=== PATIENT | male | born 1980 ===

== ENCOUNTER 2016-10-04 07:56 | Emergency (ER) | payer OTHER, SELFPAY ==
[2016-10-04 08:01] VITALS: BMI 19.9
[2016-10-04 08:04] VITALS: RESP 18; O2SAT 100
[2016-10-04] MEDS ORDERED: Lidocaine 5% Patch TD STA (08:54)
--- NOTE | 2016-10-04 08:54 | C.PDOC ---
History Of Present Illness Patient is a 36 y/o male presents to the ED for evaluation of upper and lower back pain for the last 3 weeks. States that pain is worse when moving a certain way, and with sitting, but feels better when walking or laying down. 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 Otherwise, denies any fall, trauma, nausea, vomiting, bowel or bladder incontinence/retention, saddle anesthesia, paresthesia, focal weakness, sensory deficit, hematuria, dysuria, or fever. Time Seen by Provider: 10/04/16 08:31 Chief Complaint (Nursing): Back Pain History Per: Patient History/Exam Limitations: no limitations Onset/Duration Of Symptoms: Days (3 weeks) Current Symptoms Are (Timing): Still Present Quality Of Discomfort: "Pain" Severity: Moderate Previous Symptoms: Back Pain. denies: Prior Injury Associated Symptoms: None. denies: Incontinence, New Weakness, New Numbness Exacerbating Factor(s): Movement (certain movements), Sitting Recent travel outside of the [place]: No Additional History Per: Patient Past Medical History Reviewed: Historical Data, Nursing Documentation, Vital Signs Vital Signs: Last Vital Signs Temp 97.8 F 10/04/16 09:55 Pulse 63 10/04/16 09:55 Resp 18 10/04/16 09:55 BP 123/78 10/04/16 09:55 Pulse Ox 100 10/04/16 10:48 Surgical History: Appendectomy (2004) Family History: States: Unknown Family Hx - Social History Hx Tobacco Use: No Hx Alcohol Use: Yes Hx Substance Use: No - Immunization History Hx Tetanus Toxoid Vaccination: No Hx Influenza Vaccination: No Hx Pneumococcal Vaccination: No Review Of Systems Except As Marked, All Systems Reviewed And Found Negative. Constitutional: Negative for: Fever, Chills Cardiovascular: Negative for: Chest Pain, Palpitations Respiratory: Negative for: Shortness of Breath Gastrointestinal: Negative for: Nausea, Vomiting, Abdominal Pain Genitourinary: Negative for: Dysuria, Frequency, Incontinence, Hematuria Musculoskeletal: Positive for: Back Pain Skin: Negative for: Rash, Bruising Neurological: Negative for: Weakness, Numbness Physical Exam - Physical Exam Appears: Non-toxic, No Acute Distress Skin: Normal Color, Warm, Dry Head: Atraumatic, Normacephalic Eye(s): bilateral: Normal Inspection Oral Mucosa: Moist Neck: Normal ROM, Supple Chest: Symmetrical Cardiovascular: Rhythm Regular, No Murmur Respiratory: Normal Breath Sounds, No Rales, No Rhonchi, No Wheezing Gastrointestinal/Abdominal: Soft, No Tenderness Back: No CVA Tenderness, No Vertebral Tenderness, Muscle Spasm (mild), Paraspinal Tenderness (right thoracic, mid paraspinal, and LS spine) Extremity: Bilateral: Atraumatic, Normal ROM Neurological/Psych: Oriented x3, Normal Speech, Normal Cognition, No Other (no focal deficits) ED Course And Treatment O2 Sat by Pulse Oximetry: 100 (RA) Pulse Ox Interpretation: Normal - Other Rad CXR X-Ray: Viewed By Me, Read By Radiologist Interpretation: HISTORY: pain. COMPARISON: No prior. TECHNIQUE: Chest PA and lateral. FINDINGS: LUNGS: Bilateral hyperaeration. No consolidation or masses appreciated. PLEURA: No significant pleural effusion identified. No pneumothorax apparent.Probable trace biapical pleural thickening. CARDIOVASCULAR: Normal. OSSEOUS STRUCTURES: Gentle rightward mid to upper thoracic convexity. VISUALIZED UPPER ABDOMEN: Normal. OTHER FINDINGS: None. IMPRESSION: No infiltrate or atelectasis. Bilateral hyperaeration. Probable trace biapical pleural thickening. Gentle rightward mid to upper thoracic convexity positioning versus minimal scoliosis LS spine X-Ray: Viewed By Me, Read By Radiologist Interpretation: HISTORY: pain. COMPARISON: No prior. FINDINGS: BONES: Normal alignment. No listhesis. No fracture. Mild Schmorl's node indentations L4 -5 and L5-S1 levels. DISC SPACES: Unremarkable. OTHER FINDINGS: None. IMPRESSION: Mild Schmorl's node indentations L4-5 and L5-S1 levels - otherwise unremarkable Progress Note: CXR, LS spine x-ray ordered and reviewed. Patient was treated with Toradol, and Lidoderm patch. On re-evaluation, pt reports feeling better. Patient is resting comfortably, reports improvement of back pain, no fever, no bony tenderness, no numbness, no weakness, or abdominal pain. Patient is ambulatory in the emergency department with no signs of discomfort. Patient was advised to follow up with their physician in 1-2 days. Disposition - Disposition Referrals: [facility] [place] [Outside] [facility] [Outside] [facility] [Outside] Disposition: HOME/ ROUTINE Disposition Time: 09:29 Condition: STABLE Additional Instructions: Follow up with PMD within 1-2 days. Return to ED if feel worse. 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 - Scribe Statement The provider has reviewed the documentation as recorded by the Scribe Johan Mckay All medical record entries made by the Gato were at my direction and personally dictated by me. I have reviewed the chart and agree that the record accurately reflects my personal performance of the history, physical exam, medical decision making, and the department course for this patient. I have also personally directed, reviewed, and agree with the discharge instructions and disposition.
--- NOTE | 2016-10-04 09:09 | RAD ---
PROCEDURE: Radiographs of the Lumbar Spine. HISTORY: pain COMPARISON: No prior. FINDINGS: BONES: Normal alignment. No listhesis. No fracture. Mild Schmorl's node indentations L4-5 and L5-S1 levels DISC SPACES: Unremarkable. OTHER FINDINGS: None. IMPRESSION: Mild Schmorl's node indentations L4-5 and L5-S1 levels - otherwise unremarkable
--- NOTE | 2016-10-04 09:12 | RAD ---
HISTORY: pain COMPARISON: No prior. TECHNIQUE: Chest PA and lateral FINDINGS: LUNGS: Bilateral hyperaeration. No consolidation or masses appreciated PLEURA: No significant pleural effusion identified. No pneumothorax apparent.Probable trace biapical pleural thickening. CARDIOVASCULAR: Normal. OSSEOUS STRUCTURES: Gentle rightward mid to upper thoracic convexity VISUALIZED UPPER ABDOMEN: Normal. OTHER FINDINGS: None. IMPRESSION: No infiltrate or atelectasis. Bilateral hyperaeration. Probable trace biapical pleural thickening Gentle rightward mid to upper thoracic convexity positioning versus minimal scoliosis
[2016-10-04] MEDS ORDERED: Lidocaine 5% Patch TD ONE (09:13)
[2016-10-04 10:07] VITALS: BP 123/78; PULSE 63; TEMP 97.8
== END 2016-10-04 09:55 | disposition home or self-care (01) ==
LOC: C.ER 07:56
DX: M54.6 Pain in thoracic spine (principal)
CPT/HCPCS: 71020; 72100; 96372; 99284; J1885

== ENCOUNTER 2016-10-16 06:34 | Emergency (ER) | payer OTHER ==
[2016-10-16 06:35] VITALS: BMI 19.9
[2016-10-16 06:46] VITALS: BP 135/85; PULSE 74; RESP 20; O2SAT 96
[2016-10-16 06:59] VITALS: TEMP 97.4
--- NOTE | 2016-10-16 07:23 | C.PDOC ---
History Of Present Illness 36 y/o M c no PMHx p/w back pain x weeks. Patient states he was in this ER 1.5 weeks ago and was discharged with pain medications but they have not taken the pain away. He reports pain in the R flank, worse with urination. He describes the pain as intermittent, sharp, sometimes moving down the R leg and causing numbness in the leg. He denies fever, abnormal urine, penile lesions, weakness, urinary retention or incontinence. Time Seen by Provider: 10/16/16 07:03 Chief Complaint (Nursing): Male Genitourinary Past Medical History Vital Signs: Last Vital Signs Temp 97.4 F L 10/16/16 06:59 Pulse 74 10/16/16 06:44 Resp 20 10/16/16 06:44 BP 135/85 10/16/16 06:44 Pulse Ox 96 10/16/16 07:26 Surgical History: Appendectomy (2004) Family History: States: Unknown Family Hx - Social History Hx Tobacco Use: No Hx Alcohol Use: No Hx Substance Use: No - Immunization History Hx Tetanus Toxoid Vaccination: No Hx Influenza Vaccination: No Hx Pneumococcal Vaccination: No Review Of Systems Except As Marked, All Systems Reviewed And Found Negative. Constitutional: Negative for: Fever Cardiovascular: Negative for: Chest Pain Physical Exam - Physical Exam Additional Physical Exam Comments: Constitutional: No acute distress. Head: Normocephalic. Atraumatic. Eyes: PERRL. ENT: Moist mucous membranes. Neck: Supple. Cardiovascular: Regular rate. Radial pulse 2+ bilaterally. Chest: No tenderness. Respiratory: Clear to auscultation bilaterally. GI: Soft. Nontender. Nondistended. Back: No CVA tenderness. No midline tenderness. R paraspinal tenderness in lumbar area. Musculoskeletal: No tenderness or swelling of extremities. Skin: No rash. Neurologic: Alert, no focal deficit. ED Course And Treatment O2 Sat by Pulse Oximetry: 96 Medical Decision Making Medical Decision Making: On previous visit, LS spine negative for fracture. Due to urinary symptoms, will send UA to evaluate for infection or hematuria. If positive, will send for CT. If negative, will continue treatment for likely MSK pain. UA negative. Will discharge, f/u PMD, return to ED for numbness, weakness, urinary retention or incontinence. Disposition - Disposition Referrals: [facility] [Outside] Disposition: HOME/ ROUTINE Disposition Time: 08:17 Condition: STABLE Instructions: Acute Low Back Pain (ED) Forms: [facility] (Surinamese) - Clinical Impression Clinical Impression: Back pain - Scribe Statement The provider has reviewed the documentation as recorded by the Scribe Johan Mckay All medical record entries made by the Scribe were at my direction and personally dictated by me. I have reviewed the chart and agree that the record accurately reflects my personal performance of the history, physical exam, medical decision making, and the department course for this patient. I have also personally directed, reviewed, and agree with the discharge instructions and disposition.
[2016-10-16 08:05] LABS: RBC URINE < 1 /hpf (0-3); URINE BILIRUBIN NEGATIVE (NEGATIVE); URINE BLOOD NEGATIVE (NEGATIVE); URINE COLOR Yellow (YELLOW); URINE GLUCOSE (UA) NORMAL (Normal); URINE KETONE NEGATIVE (NEGATIVE); URINE LEUKOCYTE ESTERASE NEG Leu/uL (Negative); URINE PROTEIN NEGATIVE (NEGATIVE); URINE UROBILINOGEN NORMAL mg/dL (0.2-1.0); WBC URINE 1 /hpf (0-5)
== END 2016-10-16 08:23 | disposition home or self-care (01) ==
LOC: C.ER 06:34
DX: M54.9 Dorsalgia, unspecified (principal)

== ENCOUNTER 2016-10-28 07:37 | Emergency (ER) | payer OTHER ==
[2016-10-28 07:38] VITALS: BMI 19.9
[2016-10-28 07:44] VITALS: O2SAT 100
--- NOTE | 2016-10-28 07:55 | C.PDOC ---
History Of Present Illness Patient is a 36 year old male presents to ED for evaluation of cramping to bilateral feet for the last 3 days. Pt states that pain is intermittent and lasts for approximately 30 seconds at a time. Denies any sensory changes, or fever. No other complaints. Time Seen by Provider: 10/28/16 07:47 Chief Complaint (Nursing): Lower Extremity Problem/Injury History Per: Patient History/Exam Limitations: no limitations Onset/Duration Of Symptoms: Days (3), Intermittent Episodes Current Symptoms Are (Timing): Still Present Recent travel outside of the [place]: No Additional History Per: Patient Past Medical History Reviewed: Historical Data, Nursing Documentation, Vital Signs Vital Signs: Last Vital Signs Temp 97.8 F 10/28/16 09:08 Pulse 67 10/28/16 09:08 Resp 16 10/28/16 09:08 BP 119/77 10/28/16 09:08 Pulse Ox 100 10/28/16 09:08 - Medical History PMH: No Chronic Diseases Surgical History: Appendectomy (2004) Family History: States: Unknown Family Hx - Social History Hx Tobacco Use: No Hx Alcohol Use: No Hx Substance Use: No - Immunization History Hx Tetanus Toxoid Vaccination: No Hx Influenza Vaccination: No Hx Pneumococcal Vaccination: No Review Of Systems Except As Marked, All Systems Reviewed And Found Negative. Constitutional: Negative for: Fever, Chills Musculoskeletal: Positive for: Foot Pain (bilateral) Skin: Negative for: Rash, Bruising Neurological: Negative for: Weakness, Numbness Physical Exam - Physical Exam Appears: Non-toxic, No Acute Distress Skin: Normal Color, Warm, Dry, No Rash Head: Atraumatic, Normacephalic Eye(s): bilateral: Normal Inspection Oral Mucosa: Moist Neck: Normal ROM, Supple Chest: Symmetrical Cardiovascular: Rhythm Regular Respiratory: No Accessory Muscle Use Extremity: Normal ROM (FROM of bilateral feet), No Tenderness (no tenderness to b/l feet), No Pedal Edema, No Calf Tenderness, Capillary Refill (<2 sec.), No Deformity, No Swelling Extremity: Bilateral: Atraumatic, Normal Color And Temperature, Normal ROM Pulses: Left Dorsalis Pedis: Normal, Right Dorsalis Pedis: Normal Neurological/Psych: Oriented x3, Normal Speech, Normal Motor, Normal Sensation Gait: Steady ED Course And Treatment - Laboratory Results Result Diagrams: 10/28/16 08:15 10/28/16 08:15 O2 Sat by Pulse Oximetry: 100 (on RA) Pulse Ox Interpretation: Normal Progress Note: Blood work ordered and reviewed. Disposition - Disposition Referrals: [facility] [Outside] Disposition: HOME/ ROUTINE Disposition Time: 09:08 Condition: GOOD Additional Instructions: Please follow up with a primary doctor in the next week. Return to the ER for any worsening symptoms or for any other concerns. Instructions: Leg Cramps (ED), Muscle Cramp (ED) Forms: General Discharge Instructions, [facility] (Uruguayan) - Clinical Impression Clinical Impression: Cramping of feet - Scribe Statement The provider has reviewed the documentation as recorded by the Scribe Johan Mckay All medical record entries made by the Scribe were at my direction and personally dictated by me. I have reviewed the chart and agree that the record accurately reflects my personal performance of the history, physical exam, medical decision making, and the department course for this patient. I have also personally directed, reviewed, and agree with the discharge instructions and disposition.
[2016-10-28 08:18] LABS: BASO % 0.3 % (0.0-2.0); EOS # 0.1 K/uL (0.0-0.7); HEMATOCRIT 39.1 % (35.0-51.0); LYMPH # 1.6 K/uL (1.0-4.3); LYMPH % 28.6 % (20.0-40.0); MEAN CELL VOLUME 71.6 fL (80.0-94.0); MEAN CORPUSCULAR HEMOGLOBIN 22.6 pg (27.0-31.0); MEAN CORPUSCULAR HGB CONC 31.5 g/dL (33.0-37.0); MEAN PLATELET VOLUME 7.3 fL (7.2-11.7); MONO # 0.4 K/uL (0.0-0.8); MONO % 7.8 % (0.0-10.0); NRBC % 0.2 % (0.0-2.0); RED CELL DISTRIBUTION WIDTH 14.7 % (11.5-14.5); WHITE BLOOD COUNT 5.5 K/uL (4.8-10.8)
[2016-10-28 08:27] LABS: CHLORIDE 104 mmol/L (98-107)
[2016-10-28 08:28] LABS: POTASSIUM 4.2 mmol/L (3.6-5.2); SODIUM 141 mmol/L (132-148)
[2016-10-28 08:30] LABS: ALB/GLOB RATIO 1.5 (1.0-2.1); ALKALINE PHOSPHATASE 60 U/L (38-126); AST/SGOT 36 U/L (17-59); BLOOD UREA NITROGEN 14 mg/dL (9-20); CARBON DIOXIDE 24 mmol/L (22-30); GFR AFRICAN-AMERICAN > 60; GLUCOSE,RANDOM 105 mg/dL (75-110); TOTAL PROTEIN 7.4 g/dL (6.3-8.3)
[2016-10-28 08:31] LABS: ALT/SGPT 36 U/L (21-72); CALCIUM 8.9 mg/dl (8.6-10.4)
[2016-10-28 09:09] VITALS: BP 119/77; PULSE 67; RESP 16; TEMP 97.8
== END 2016-10-28 09:09 | disposition home or self-care (01) ==
LOC: C.ER 07:37
DX: R25.2 Cramp and spasm (principal)

== ENCOUNTER 2017-09-16 04:57 | Emergency (ER) | payer SELFPAY ==
[2017-09-16 04:57] VITALS: BMI 19.9
[2017-09-16 05:07] VITALS: RESP 14; TEMP 98.1
--- NOTE | 2017-09-16 05:18 | C.PDOC ---
History Of Present Illness 37 yo male come in for evaluation of Right sided mid and lower back pain gradually developed for past 2 months worse this AM. Pt admits, " lifting heavy boxes at work". pain is localized over back area, worse with movement. Pt sts, similar sx in past. Otherwise, pt denies known direct trauma or injury, fever, chills, abd. pain, N/V, UTI sx, saddle anesthesia, incontinence, denies weakness , sensory or vascular deficits to B/L LEs. Ambulate to Ed for evaluation, not in any apparent distress. Time Seen by Provider: 09/16/17 05:09 Chief Complaint (Nursing): Back Pain History Per: Patient Past Medical History Reviewed: Historical Data, Nursing Documentation, Vital Signs Vital Signs: Last Vital Signs Temp 98.1 F 09/16/17 05:03 Pulse 68 09/16/17 05:03 Resp 14 09/16/17 05:03 BP Pulse Ox 98 09/16/17 05:03 - Medical History PMH: No Chronic Diseases Denies: Chronic Kidney Disease Surgical History: Appendectomy (2004) Family History: States: Unknown Family Hx - Social History Hx Tobacco Use: No Hx Alcohol Use: No Hx Substance Use: No - Immunization History Hx Tetanus Toxoid Vaccination: No Hx Influenza Vaccination: No Hx Pneumococcal Vaccination: No Review Of Systems Except As Marked, All Systems Reviewed And Found Negative. Constitutional: Negative for: Fever, Chills ENT: Negative for: Throat Pain, Throat Swelling Cardiovascular: Negative for: Chest Pain, Palpitations Respiratory: Negative for: Cough, Shortness of Breath, Wheezing Gastrointestinal: Negative for: Nausea, Vomiting, Abdominal Pain, Diarrhea Genitourinary: Negative for: Frequency Musculoskeletal: Positive for: Back Pain Skin: Negative for: Rash Neurological: Negative for: Weakness, Numbness, Headache Physical Exam - Physical Exam Appears: Well, Non-toxic, No Acute Distress Skin: Normal Color, Warm, No Rash, No Ecchymosis Head: Normacephalic Eye(s): bilateral: PERRL Nose: No Flaring, No Discharge Oral Mucosa: Moist Throat: No Erythema, No Drooling Neck: Supple Chest: Symmetrical Cardiovascular: Rhythm Regular Respiratory: No Decreased Breath Sounds, No Accessory Muscle Use, No Stridor, No Wheezing Gastrointestinal/Abdominal: Soft, No Tenderness, No Distention, No Guarding, No Rebound Back: No CVA Tenderness, No Vertebral Tenderness, Paraspinal Tenderness ( diffuse Right sided paraspinal thoracic and lumbar tenderness. No palpable deformity. no skin changes.) Extremity: Normal ROM, No Tenderness, No Pedal Edema, No Swelling Neurological/Psych: Oriented x3, Normal Speech, Normal Motor, Normal Sensation, Normal Reflexes ED Course And Treatment O2 Sat by Pulse Oximetry: 98 Pulse Ox Interpretation: Normal Progress Note: On re-eval, pt is afebrile, hemodynamicaly stable. Ambulatory in ED with stable gait. ENT: no acute findings. Neck: Supple, (-) midline tenderness. Lungs: CTA B/L, BS dequal B/L. Abd: benign. Neurologicaly intact. Pt has clinical findings c/w back strain. Pt advised. ref. to f/u with PMD in 2-3 days for re-evaluation. return to ED if any worsening or new changes. Disposition Counseled Patient/Family Regarding: Diagnosis, Need For Followup, Rx Given - Disposition Referrals: [facility] [Outside] Disposition: HOME/ ROUTINE Disposition Time: 05:16 Condition: STABLE Additional Instructions: Avoid physical activity for 1 week Take medication as prescribed Follow up with PMD in 2-3 days for re-evaluation. return to ED if any worsening or new changes. Prescriptions: Gabapentin 300 mg PO HS #7 capsule Ibuprofen [Motrin Tab] 600 mg PO TID #20 tab Methocarbamol [Robaxin] 500 mg PO TID #14 tab Instructions: Lumbar Muscle Strain (DC), Muscle Strain (DC) - Clinical Impression Clinical Impression: Low back strain
[2017-09-16 05:35] VITALS: BP 120/78; PULSE 70
[2017-09-16 05:39] VITALS: O2SAT 98
== END 2017-09-16 05:34 | disposition home or self-care (01) ==
LOC: C.ER 04:57
DX: S39.012A Strain of muscle, fascia and tendon of lower back, initial encounter (principal); X50.0XXA Overexertion from strenuous movement or load, initial encounter; Y92.89 Other specified places as the place of occurrence of the external cause; Y99.0 Civilian activity done for income or pay